=== PATIENT | female | born 1980 | race Caucasian/White ===

== ENCOUNTER 2017-05-30 16:05 | Emergency (ER) | payer MEDICAID, OTHER ==
[~2017-05-30] VITALS: Ht 167.6 cm; Wt 88.3 kg
[~2017-05-30 16:05] MED LIST: CIPR500T4 PO; CYCL-319 PO; HYDR-3498 PO; PHEN-538 PO; TRAM50TA2 PO
[2017-05-30 16:08] VITALS: Ht 167.6 cm; Wt 88.3 kg
[2017-05-30] MEDS ORDERED: AZIT250T94 PO (16:48)
[2017-05-30] MEDS ORDERED: CETI10CA PO (16:49)
[2017-05-30] MEDS ORDERED: FLUT9.9S NASAL (16:49)
[2017-05-30] MEDS ORDERED: UDROBDM PO (16:50)
--- NOTE | 2017-05-30 17:02 | ERD ---
ER Documentation Chief Complaint Chief Complaint Complains of a cough and headache with earache x 1 week Hx of Bronchitis HPI This is a 36-year-old male who presents the emergency department today complaining of a cough for the past 10 days. Patient states she also has recently started with sinus congestion and earache and headache. States she has not taken any medication for that. She states that she did go to urgent care approximately 1 week ago she was unable to see her primary care doctor and was given amoxicillin. States that she finished that course. Denies any fevers or chills, vomiting, dizziness or blurred vision. ROS All systems reviewed and are negative except as per history of present illness. Medications Home Meds Active Scripts Guaifenesin-Dextromethorphan* (Robitussin* DM) 100MG/10MG/5ML Syrup, 10 ML PO Q6H Y for COUGH for 5 Days, ML Prov:KAITLIN EISENBERG PA-C 05/30/17 Cetirizine Hcl* (Zyrtec*) 10 Mg Capsule, 10 MG PO DAILY, #14 TAB.CHEW Prov:KAITLIN EISENBERG PA-C 05/30/17 Fluticasone Propionate (Flonase Allergy Relief) 9.9 Ml Blunt.susp, 2 SPRAY NASAL DAILY, #1 BOTTLE TO EACH NOSTRIL Prov:KAITLIN EISENBERG PA-C 05/30/17 Azithromycin* (Zithromax*) 250 Mg Tablet, 250 MG PO .ZPACK DIRECTED, #6 TAB TAKE 500 MG (2 TABS) THE FIRST DAY THEN 250 MG (1 TAB) DAYS 2-5 Prov:KAITLIN EISENBERG PA-C 05/30/17 Tramadol HCl (Tramadol HCl) 50 Mg Tab, 50 MG PO Q6 Y for PAIN, #10 TAB Prov:FABIAN SHERWOOD 03/09/15 Phenazopyridine Hcl* (Pyridium*) 200 Mg Tab, 200 MG PO TID Y for DY, #6 TAB Prov:ROXANA CHAN NP 01/30/15 Hydrocodone Bit-Acetaminophen* ([place]*) 5-325 Mg Tab, 1 TAB PO Q6 Y for SEVERE PAIN LEVEL 7-10, #10 TAB Prov:ROXANA CHAN NP 01/30/15 Cyclobenzaprine Hcl* (Cyclobenzaprine Hcl*) 10 Mg Tablet, 5 MG PO TID for MUSCLE SPASMS, #15 TAB Prov:ROXANA CHAN MEKHI 01/30/15 Ciprofloxacin Hcl* (Ciprofloxacin Hcl*) 500 Mg Tablet, 500 MG PO BID for 7 Days , TAB Prov:ROXANA CHANBecca GAMING 01/30/15 Allergies Allergies: Coded Allergies: No Known Drug Allergies (Verified Allergy, Mild, 10/29/14) PMhx/Soc Anesthesia Reaction: No Hx Neurological Disorder: No Hx Respiratory Disorders: No Hx Cardiac Disorders: No Hx Psychiatric Problems: No Hx Alcohol Use: No Hx Substance Use: No Hx Tobacco Use: No Smoking Status: Never smoker Physical Exam Vitals Vital Signs Date Time Temp Pulse Resp B/P Pulse Ox O2 Delivery O2 Flow Rate FiO2 05/30/17 16:08 98.9 94 20 129/82 99 Physical Exam Const: NAD Head: Atraumatic Eyes: Normal Conjunctiva ENT: Ears TM normal, nose bilateral drainage, throat erythema no exudate no vesicles Neck: Full range of motion..~ No meningismus. Resp: Clear to auscultation bilaterally no absent breath sounds. No wheezing. Cardio: Regular rate and rhythm, no murmurs Abd: Soft, non tender, non distended. Normal bowel sounds Skin: No petechiae or rashes Neur: Awake and alert Psych: Normal Mood and Affect Procedures/MDM This a 36-year-old female who presents to the emergency department today complaining of signs and symptoms most consistent with URI that is likely viral. Patient is afebrile and otherwise well-appearing. Her oxygen saturation 91%. She is not tachycardic. Do not feel that she requires a chest x-ray at this time. I do have low suspicion for pneumonia, PE, abscess, effusion, pneumothorax. I have low suspicion for strep pharyngitis, peritonsillar abscess, retropharyngeal abscess, otitis media, abscess, meningitis, sepsis, or other acute infectious bacterial process, however given patient's duration of symptoms and persistent cough we will give the patient a prescription for azithromycin that would cover her for pneumonia and sinusitis. Patient also given a prescription for Zyrtec, Flonase, Robitussin. Patient declined any medication for her headache here in the emergency department stating that she did have Tylenol and Motrin a home At this time the patient is stable for discharge and outpatient management. They should follow up with their PCP in the next 1-2. They may return to the emergency department sooner if symptoms persist or worsen. Patient understood and agreed with the plan. Departure Diagnosis: Primary Impression: URI (upper respiratory infection) URI type: unspecified URI Qualified Code: J06.9 - Upper respiratory tract infection, unspecified type Condition: Fair Patient Instructions: Preventing Common Respiratory Infections Referrals: your PCP Additional Instructions: Call your primary care doctor TOMORROW for an appointment during the next 1-2 days.See the doctor sooner or return here if your condition worsens before your appointment time. Take new antibiotics as prescribed. Take Robitussin for cough. Take Flonase and Zyrtec for earache and nasal congestion KAITLIN EISENBERG PA-C May 30, 2017 17:02
== END 2017-05-30 17:00 | disposition home or self-care (01) ==
LOC: FTE 16:05
DX: J06.9 Acute upper respiratory infection, unspecified (principal)
CPT/HCPCS: 99283

== ENCOUNTER 2017-08-22 10:08 | Emergency (ER) | END 2017-08-22 11:12 | disposition home or self-care (01) ==